=== PATIENT | female | born 1995 | race African-American/Black ===

== ENCOUNTER 2022-01-20 09:47 | Emergency (ER) | payer MEDICAID ==
[~2022-01-20] VITALS: Ht 157.5 cm; Wt 60.0 kg
[2022-01-20 10:10] VITALS: BP 114/71
[2022-01-20] MEDS ORDERED: KETOROLAC 60MG/2ML VIAL IM ONE (11:30)
[2022-01-20] MEDS ORDERED: IBUP-2029 MT (11:47)
== END 2022-01-20 12:39 | disposition home or self-care (01) ==
LOC: ER 09:47
DX: M25.562 Pain in left knee (principal)
CPT/HCPCS: 99282; J1885